=== PATIENT | female | born 1995 | race Two or more races ===

== ENCOUNTER 2023-10-30 13:10 | Emergency (ER) | payer MEDICAID ==
[~2023-10-30] VITALS: Ht 170.2 cm; Wt 92.5 kg
[2023-10-30 13:18] VITALS: BP 108/68; PULSE 82; RESP 18; O2SAT 99
== END 2023-10-30 14:16 | disposition left against medical advice (07) ==
LOC: ER 13:10
DX: R51.9 Headache, unspecified (principal); R20.0 Anesthesia of skin; Z53.21 Procedure and treatment not carried out due to patient leaving prior to being seen by health care provider

== ENCOUNTER 2023-11-03 20:03 | Emergency (ER) | payer MEDICAID ==
[~2023-11-03] VITALS: Ht 170.2 cm; Wt 93.6 kg
[2023-11-04] MEDS ORDERED: PRED20TA2 PO (00:29)
[2023-11-04] MEDS ORDERED: ARTISOL13 EACHEYE (00:35)
[2023-11-04] MEDS ORDERED: ACYC400T16 PO (00:35)
[2023-11-04 02:51] VITALS: BP 124/75; PULSE 87; RESP 16; TEMP 98; O2SAT 98
== END 2023-11-04 02:51 | disposition home or self-care (01) ==
LOC: ER 20:03
DX: G51.0 Bell's palsy (principal)
CPT/HCPCS: 70450; 72125